=== PATIENT | male | born 1965 | race Caucasian/White ===

== ENCOUNTER → 2025-03-01 15:40 | Outpatient (REF) | payer OTHER, SELFPAY | LOC: CLAB 15:40 | PROVIDERS: ATTENDING PHYSICIAN Otolaryngology | DX: J34.2 Deviated nasal septum (principal); J33.9 Nasal polyp, unspecified | CPT/HCPCS: 87070; 87205 ==

== ENCOUNTER → 2025-03-18 16:23 | Outpatient (REF) | payer OTHER, SELFPAY | LOC: RAD 16:23 | PROVIDERS: ATTENDING PHYSICIAN Otolaryngology; FAMILY PHYSICIAN Nurse Practitioner Family | DX: J33.9 Nasal polyp, unspecified (principal) | CPT/HCPCS: 70486 ==